=== PATIENT | female | born 1995 | race Caucasian/White ===

== ENCOUNTER 2017-09-09 11:54 | Emergency (ER) | payer MEDICAID ==
[~2017-09-09] VITALS: Ht 160 cm; Wt 58.0 kg
[~2017-09-09 11:54] MED LIST: SULF1TAB44; TYLENOL WITH COD
[2017-09-09 16:45] VITALS: BP 118/62
== END 2017-09-09 16:59 | disposition home or self-care (01) ==
LOC: ER 13:10
DX: J20.9 Acute bronchitis, unspecified (principal)
CPT/HCPCS: 71046; 93005; 99284

== ENCOUNTER 2018-09-08 16:04 | Emergency (ER) | payer MEDICAID, OTHER ==
[~2018-09-08] VITALS: Ht 165.1 cm; Wt 57.0 kg
[2018-09-08] MEDS ORDERED: IBUPROFEN 600MG TABLET PO ONE (17:45)
[2018-09-08 17:47] VITALS: BP 137/94
== END 2018-09-08 18:09 | disposition home or self-care (01) ==
LOC: ER 16:04
DX: R59.0 Localized enlarged lymph nodes (principal); Z79.899 Other long term (current) drug therapy
CPT/HCPCS: 99283

== ENCOUNTER 2019-07-10 18:43 | Emergency (ER) | payer MEDICAID ==
[~2019-07-10] VITALS: Ht 160 cm; Wt 65.0 kg
[2019-07-10 18:45] VITALS: BP 126/81
== END 2019-07-11 00:27 | disposition left against medical advice (07) ==
LOC: ER 18:43
DX: R53.1 Weakness (principal); R42 Dizziness and giddiness; Z53.21 Procedure and treatment not carried out due to patient leaving prior to being seen by health care provider

== ENCOUNTER 2021-05-19 12:28 | Emergency (ER) | payer MEDICAID ==
[~2021-05-19] VITALS: Ht 160 cm; Wt 59.0 kg
[2021-05-19] MEDS ORDERED: IBUP-2741 PO (12:44)
[2021-05-19] MEDS ORDERED: NAPR-1176 MT (12:52)
[2021-05-19] MEDS ORDERED: KETOROLAC 30MG/ML VIAL IM ONE (13:00)
[2021-05-19 13:04] VITALS: BP 130/73
== END 2021-05-19 13:28 | disposition home or self-care (01) ==
LOC: ER 12:28
DX: M25.512 Pain in left shoulder (principal)
CPT/HCPCS: 81025; 96372; 99283; J1885

== ENCOUNTER 2022-01-16 12:00 | Emergency (ER) | payer MEDICAID ==
[~2022-01-16] VITALS: Ht 170.2 cm; Wt 57.0 kg
[~2022-01-16 12:00] MED LIST changes: +IBUP-2741 PO; +NAPR-1176 MT
[2022-01-16 12:03] VITALS: BP 121/75
[2022-01-16] MEDS ORDERED: ONDANSETRON HCL 4MG/2ML INJ IV STA (12:21)
[2022-01-16 12:22] LABS: BASOPHILS % 0.6 % (0.0-2.0); EOSINOPHILS % 5.1 % (0.0-5.0); HEMATOCRIT. 38.6 % (36.0-48.0); HEMOGLOBIN. 13.4 g/dL (12.0-16.0); MEAN CORPUSCULAR HEMOGLOBIN 30.4 pg (28.0-32.0); MEAN CORPUSCULAR VOLUME 87.7 fL (81.0-99.0); MEAN PLATELET VOLUME 7.4 fl (7.4-10.4); MONOCYTES % 7.4 % (2.0-8.0); NEUTROPHILS % 55.9 % (40.0-76.0); PLATELET 204 x1000/uL (130-400); RED CELL DISTRIBUTION WIDTH 12.5 % (11.6-14.6)
[2022-01-16 12:29] LABS: CLARITY URINE CLEAR (CLEAR); COLOR URINE YELLOW (YELLOW); KETONES URINE TRACE (NEGATIVE); LEUKOCYTE ESTERASE URINE 2+ (NEGATIVE); NITRITE URINE NEGATIVE (NEGATIVE); OCCULT BLOOD URINE NEGATIVE (NEGATIVE); PH URINE 6.5 (4.5-8.0); PROTEIN URINE NEGATIVE (NEGATIVE); SPECIFIC GRAVITY URINE 1.028 (1.005-1.030)
[2022-01-16 12:30] LABS: CHLORIDE 105 mEq/L (98-107)
[2022-01-16] MEDS ORDERED: SODIUM CHLORIDE 0.9% 1,000 ML IV ONE (12:30)
[2022-01-16 12:55] LABS: HCG SCREEN NEGATIVE
[2022-01-16] MEDS ORDERED: KETOROLAC 15MG/ML VIAL IV ONE (13:15)
[2022-01-16] MEDS ORDERED: NITR-87 MT (15:01)
[2022-01-16] MEDS ORDERED: IBUP-2029 MT (15:01)
== END 2022-01-16 15:20 | disposition home or self-care (01) ==
LOC: ER 12:13
DX: R10.2 Pelvic and perineal pain (principal)
CPT/HCPCS: 36415; 76856; 80053; 81003; 81025; 83690; 84703; 85025; 87086; 96361; 96374; 99284; J2405; J7030

== ENCOUNTER 2023-08-10 17:00 | Emergency (ER) | payer SELFPAY ==
[~2023-08-10] VITALS: Ht 160 cm; Wt 61.0 kg
[~2023-08-10 17:00] MED LIST changes: +IBUP-2029 MT; +NITR-87 MT
[2023-08-10 17:14] VITALS: BP 127/82; PULSE 102; RESP 12; TEMP 98.2; O2SAT 100
[2023-08-10 19:00] LABS: CLARITY URINE CLOUDY (CLEAR); COLOR URINE YELLOW (YELLOW); GLUCOSE URINE NEGATIVE (NEGATIVE); KETONES URINE NEGATIVE (NEGATIVE); LEUKOCYTE ESTERASE URINE 1+ (NEGATIVE); NITRITE URINE NEGATIVE (NEGATIVE); OCCULT BLOOD URINE 3+ (NEGATIVE); PROTEIN URINE NEGATIVE (NEGATIVE); SPECIFIC GRAVITY URINE 1.016 (1.005-1.030); UROBILINOGEN URINE 0.2 E.U./dL (0.2-1.0)
[2023-08-10 19:17] LABS: BACTERIA URINE TRACE; SQUAMOUS EPITHELIAL CELL URINE 1+ /lpf (RARE/1+)
[2023-08-10 19:53] LABS: BASOPHILS % 0.6 % (0.0-2.0); EOSINOPHILS % 1.9 % (0.0-5.0); HEMATOCRIT. 36.4 % (36.0-48.0); HEMOGLOBIN. 12.7 g/dL (12.0-16.0); LYMPHOCYTES % 14.8 % (20.0-50.0); MEAN CORPUSCULAR HEMOGLOBIN 30.4 pg (28.0-32.0); MEAN CORPUSCULAR HGB CONC 34.7 g/dL (31.0-37.0); MEAN CORPUSCULAR VOLUME 87.6 fL (81.0-99.0); MEAN PLATELET VOLUME 7.8 fl (7.4-10.4); MONOCYTES % 6.3 % (2.0-8.0); NEUTROPHILS % 76.4 % (40.0-76.0); PLATELET 200 x1000/uL (130-400); RED BLOOD CELL COUNT 4.16 mill/uL (4.2-5.4); RED CELL DISTRIBUTION WIDTH 12.5 % (11.6-14.6); WHITE BLOOD COUNT 9.7 x1000/uL (4.5-11.0)
[2023-08-10 20:18] LABS: ALANINE AMINOTRANSFERASE 9 IU/L (10-49); ALBUMIN 4.9 g/dL (3.2-4.8); ASPARTATE AMINOTRANSFERASE 22 IU/L (<34); B-HCG QUANTITATIVE 2245 mIU/mL (<3); BILIRUBIN TOTAL 0.8 mg/dL (0.1-1.0); CALCIUM 9.9 mg/dL (8.7-10.4); CARBON DIOXIDE 27 mEq/L (21-32); CHLORIDE 105 mEq/L (98-107); CREATININE 0.7 mg/dL (0.6-1.0); GLUCOSE 96 mg/dL (70-105); POTASSIUM 4.2 mEq/L (3.5-5.1); PROTEIN TOTAL 8.1 g/dL (6.0-8.3); SODIUM 140 mEq/L (136-145); UREA NITROGEN BLOOD 11 mg/dL (9-23)
[2023-08-10] MEDS ORDERED: CEPH500C2 MT (21:29)
[2023-08-10] MEDS ORDERED: PREN-28 MT (21:29)
== END 2023-08-10 22:35 | disposition home or self-care (01) ==
LOC: ER 17:00
DX: O20.0 Threatened abortion (principal); O23.30 Infections of other parts of urinary tract in pregnancy, unspecified trimester; N39.0 Urinary tract infection, site not specified; Z3A.08 8 weeks gestation of pregnancy
CPT/HCPCS: 36415; 76801; 80053; 81003; 81025; 84702; 85025; 86850; 86900; 99284